=== PATIENT | male | born 1955 | race African-American/Black ===

== ENCOUNTER 2024-03-24 11:58 | Emergency (ER) | payer MEDICARE, SELFPAY ==
[2024-03-24 12:02] VITALS: BP 129/75; PULSE 106; RESP 20; TEMP 36.6; O2SAT 96; BMI 27.3
--- NOTE | 2024-03-24 12:08 | DI.RAD.S_ITS ---
PROCEDURE: XR CHEST 1V INDICATIONS: chest pain TECHNIQUE: One view of the chest was acquired. COMPARISON: [facility], CR, XR CHEST 1 VIEW, 11/05/2021, 16:15. FINDINGS: Surgical changes and devices: None. Lungs and pleura: No dense airspace disease or pleural effusions. 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 Similar cardiomediastinal contours. Bones and chest wall: Degenerative changes IMPRESSION: No acute radiographic abnormality on this single view study. Similar cardiomediastinal contours and right hemidiaphragm probable eventration. Dictated by: Adalid Nice M.D. on 03/24/2024 at 12:41 Approved by: Adalid Nice M.D. on 03/24/2024 at 12:42
--- NOTE | 2024-03-24 12:08 | EKG_ITS ---
[place] [id number] [place] [id number] Test Date: 2024-03-24 Pat Name: Estuardo Villagran Department: [facility] Room: Gender: Male Senior Automation Engineer: FELICITAS : [id number] Requested By: Order Number: [id number] Reading MD: Trung King Measurements Intervals [place] Rate: 99 P: 60 TN: 176 QRS: 2 QRSD: 74 T: 36 QT: 336 QTc: 431 Interpretive Statements Normal sinus rhythm Electronically Signed On 03-24-2024 23:46:07 PST by Trung King
[2024-03-24 12:23] VITALS: PULSE 100; RESP 18; O2SAT 94
[2024-03-24 12:30] VITALS: PULSE 99; RESP 17
[2024-03-24 12:46] LABS: Add Manual Diff / Slide Review NO; Basophils Absolute Auto 100 /uL (0-100); Basophils Percent Auto 0.5 % (0-2); Eosinophils Absolute Auto 0 /uL (0-450); Eosinophils Percent Auto 0.1 % (2-4); Hematocrit 48.1 % (41-53); Lymphocytes Absolute Auto 900 /uL (1100-4500); Lymphocytes Percent Auto 7.6 % (25-40); Mean Corpuscular HGB Conc 33.3 % (30-36); Mean Corpuscular Hemoglobin 30.5 PG (26-34); Mean Corpuscular Volume 91.6 fL (80-100); Monocytes Absolute Auto 1200 /uL (0-900); Monocytes Percent Auto 9.6 % (3-14); Neutrophils Absolute Auto 10000 /uL (1500-7000); Neutrophils Percent Auto 82.2 % (50-75); Platelet Count 250 X10^3/uL (150-400); Red Blood Cell Count 5.25 X10^6/uL (4.5-5.9); Red Cell Distribution Width 12.3 % (11.6-14.8); White Blood Cell Count 12.2 X10^3/uL (4.5-11.0)
[2024-03-24 12:53] LABS: INR 1.2 (0.9-1.3); Prothrombin Time 13.7 SECONDS (9.4-12.5)
[2024-03-24 12:56] LABS: PTT Partial Thromboplastin Tim 31 SECONDS (25.1-36.5)
[2024-03-24 12:58] LABS: COVID-19 CEPHEID 4-PLEX PCR Negative (Negative); Influenza A - CEPHEID Flu A NEGATIVE (NEGATIVE); Influenza B - CEPHEID Flu B NEGATIVE (NEGATIVE); Respiratory Syncytial Virus Negative (Negative)
[2024-03-24 12:58] LABS: Alanine Aminotransferase 30 IU/L (<50); Albumin 4.7 g/dL (3.5-5.0); Albumin Globulin Ratio 1.1 (1.0-2.8); Alkaline Phosphatase 41 U/L (38-126); Aspartate Aminotransferase 42 IU/L (17-59); BUN Creatinine Ratio 9.7 (6-22); Bilirubin Total 0.9 mg/dL (0.2-1.3); Blood Urea Nitrogen 15 mg/dL (9-20); Calcium 9.2 mg/dL (8.4-10.2); Carbon Dioxide 27 mmol/L (22-32); Chloride 97 mmol/L (98-107); Creatine Kinase 133 U/L (55-170); Estimated Glomerular Filt Rate 49 mL/min (>60); Globulin 4.4 g/dL (1.7-4.1); Glucose 112 mg/dL (80-110); Lipase 106 U/L (23-300); Magnesium 2.1 mg/dL (1.6-2.3); Potassium 4.3 mmol/L (3.4-5.1); Sodium 134 mmol/L (137-145); Total Protein 9.1 g/dL (6.3-8.2)
[2024-03-24 12:59] LABS: HEMOLYSIS 106 (0-50)
[2024-03-24 13:00] VITALS: BP 164/83; PULSE 101; RESP 18; O2SAT 95
[2024-03-24 13:10] LABS: NT-proBNP (BNP-Adult 18+) 167 pg/mL (<125)
[2024-03-24] MEDS: SODIUM CHLORIDE 0.9% 1,000 ML 1000 ML IV (13:12)
--- NOTE | 2024-03-24 13:20 | ED.DIZZY ---
HPI - Dizziness General Chief Complaint: Dizziness Stated Complaint: WIC; Lightheaded Time Seen by Provider: 03/24/24 12:29 Source: patient Mode of arrival: Ambulatory History of Present Illness HPI Narrative: 68-year-old male with history of hypertension and stroke presenting with lightheadedness. This is not dizziness but rather he feels lightheaded at times especially when standing. Additionally, he has had cough and body aches and headaches with his cough for the last couple of days. He had an episode of diarrhea this morning has not had nausea or vomiting. He believes he may have had a fever last night but does not febrile today. No urinary symptoms no melena no chest pain shortness of breath or abdominal pain. Related Data Home Medications Medication Instructions Recorded Confirmed No Known Home Medications 03/24/24 03/24/24 Allergies Allergy/AdvReac Type Severity Reaction Status Date / Time No Known Drug Allergies Allergy Unverified 03/24/24 12:01 Patient History Social History Smoking Status: Former smoker Smoking Status: Former smoker Exam Initial Vital Signs Initial Vital Signs: Vital Signs Temperature 97.8 F 03/24/24 12:02 Pulse Rate 106 H 03/24/24 12:02 Respiratory Rate 20 03/24/24 12:02 Blood Pressure 129/75 03/24/24 12:02 Pulse Oximetry 96 03/24/24 12:02 Oxygen Delivery Method Room Air 03/24/24 12:02 Well-appearing HENMT HENMT Other: Normocephalic and atraumatic oral mucosa is moist Neck Other: Neck is supple Resp Other: Lungs are clear normal respiratory effort Cardio Other: Regular rhythm rate no murmur rub or gallop GI Other: Normal bowel sounds 0 bowel sounds soft and nontender Skin Other: Warm and dry Course Orders Ordered: ED Orders 03/24/24 12:08 XR chest 1V Stat EKG-12 Lead Stat 03/24/24 12:17 Covid-19 + FLU A/B + RSV - PCR Stat 03/24/24 12:37 Complete Blood Count AUTO DIFF Stat Comprehensive Metabolic Panel Stat Lipase Stat Magnesium Stat NT-proBNP (BNP-Adult 18+) Stat PTT Partial Thromboplastin Mark Stat Prothrombin Time INR Stat Troponin & CK Cardiac Panel Stat Sodium Chloride (Normal Saline 0.9%) 1,000 mls @ 1,000 mls/hr IV BOLUS ONE Stop: 03/24/24 14:03 Last Admin: 03/24/24 13:12 Dose: 1,000 mls/hr Documented By: APOLINAR Vital Signs Vital signs: Vital Signs - 8 hr 03/24/24 12:02 Temperature 97.8 F Pulse Rate 106 H Respiratory Rate 20 Blood Pressure 129/75 Pulse Oximetry 96 Oxygen Delivery Method Room Air MDM - Dizziness Lab Data Lab results narrative: Creatinine is slightly elevated at 1.54. Normal troponin 03/24/24 12:37 03/24/24 12:37 Labs: Lab Results 03/24/24 03/24/24 Range/Units 12:17 12:37 WBC 12.2 H (4.5-11.0) X10^3/uL RBC 5.25 (4.5-5.9) X10^6/uL Hgb 16.0 (13.5-17.5) g/dL Hct 48.1 (41-53) % MCV 91.6 (80-100) fL MCH 30.5 (26-34) PG MCHC 33.3 (30-36) % RDW 12.3 (11.6-14.8) % Plt Count 250 (150-400) X10^3/uL Neut % (Auto) 82.2 H (50-75) % Lymph % (Auto) 7.6 L (25-40) % [place] % (Auto) 9.6 (3-14) % Eos % (Auto) 0.1 L (2-4) % Baso % (Auto) 0.5 (0-2) % Neut # (Auto) 49818 H (1614-5223) /uL Lymph # (Auto) 900 L (6339-7361) /uL [place] # (Auto) 1200 H (0-900) /uL Eos # (Auto) 0 (0-450) /uL Baso # (Auto) 100 (0-100) /uL PT 13.7 H (9.4-12.5) SECONDS INR 1.2 (0.9-1.3) APTT 31 (25.1-36.5) SECONDS Sodium 134 L (137-145) mmol/L Potassium 4.3 (3.4-5.1) mmol/L Chloride 97 L (98-107) mmol/L Carbon Dioxide 27 (22-32) mmol/L BUN 15 (9-20) mg/dL Creatinine 1.54 H (0.66-1.25) mg/dL Estimated GFR 49 L (>60) mL/min BUN/Creatinine Ratio 9.7 (6-22) Glucose 112 H (80-110) mg/dL Calcium 9.2 (8.4-10.2) mg/dL Magnesium 2.1 (1.6-2.3) mg/dL Total Bilirubin 0.9 (0.2-1.3) mg/dL AST 42 (17-59) IU/L ALT 30 (<50) IU/L Alkaline Phosphatase 41 (38-126) U/L Total Creatine Kinase 133 (55-170) U/L Troponin I 0.020 (0.01-0.034) ng/mL NT-Pro-B Natriuret Pep 167 H (<125) pg/mL Total Protein 9.1 H (6.3-8.2) g/dL Albumin 4.7 (3.5-5.0) g/dL Globulin 4.4 H (1.7-4.1) g/dL Albumin/Globulin Ratio 1.1 (1.0-2.8) Lipase 106 (23-300) U/L SARS-CoV-2 (PCR) Negative (Negative) Influenza A (RT-PCR) Flu a negative (NEGATIVE) Influenza B (RT-PCR) Flu b negative (NEGATIVE) RSV (PCR) Negative (Negative) Imaging Data Chest x-ray: My Impression: Elevated right hemidiaphragm without any other acute finding Radiologist's Impression: Per Radiology impression, previously noted elevated right hemidiaphragm no acute finding ECG Data Interpretation: ECG shows normal sinus rhythm at 99. No acute ST segment change MDM Narrative Medical decision making narrative: 68-year-old male presenting with lightheadedness myalgias cough and headache. Seems most consistent with a viral URI. We discussed testing for influenza and COVID, shared decision-making lead to us not testing. Creatinine is noted be elevated, I think this can be followed as an outpatient he was given a L of fluid here. I considered but do not suspect acute coronary syndrome or heart failure, no focal neurologic findings and no true vertigo I do not think that this is a stroke, has a minimally elevated white count without a fever I do not think that he is septic. Discharge Plan Departure Patient Disposition: Home Clinical Impression: Upper respiratory infection, viral, Lightheadedness Activity Restrictions/Additional Instructions: Emergency department evaluation today is reassuring. I think it is safe to go home. Continue previous home medications and get adequate fluids. May use Tylenol 650 mg up to 4 times a day as needed for body and headache. I recommend you follow up with your primary care provider in about a week in his that time I suggest that you have a recheck of kidney function as your creatinine was elevated a bit today. If you are having increasing shortness of breath chest or abdominal pain frequent vomiting or fevers above 101 recheck in the emergency department. Prescriptions: No Action No Known Home Medications Referrals: Miscellaneous,Doctor, MD [Primary Care Provider] - Stand Alone Forms: Patient Portal/API/Survey, Work Release Note
[2024-03-24 13:30] VITALS: BP 164/76; PULSE 96; RESP 16; O2SAT 92
[2024-03-24 14:00] VITALS: BP 158/82; PULSE 88; RESP 15; O2SAT 93
== END 2024-03-24 14:08 | disposition home or self-care (01) ==
PROVIDERS: Emergency Provider Emergency Medicine
DX: J06.9 Acute upper respiratory infection, unspecified (principal); R42 Dizziness and giddiness; Z87.891 Personal history of nicotine dependence; I10 Essential (primary) hypertension; Z86.73 Personal history of transient ischemic attack (TIA), and cerebral infarction without residual deficits
CPT/HCPCS: 0241U; 36415; 71045; 80053; 82550; 83690; 83735; 83880; 84484; 85025; 85610; 85730; 93005; 96360; 99284